=== PATIENT | female | born 1970 | race Asian ===

== ENCOUNTER → 2024-09-20 | Day surgery (SDC) | payer OTHER ==
[2024-09-18 14:09] VITALS: BMI 29.7
[2024-09-20 13:14] VITALS: RESP 18
[2024-09-20] MEDS: LIDOCAINE HCL 1% PRESERVATIVE FREE - 30ML VIAL IJ ONE ×2 (14:11)
[2024-09-20] MEDS: BUPIVACAINE HCL/PF 0.5% (5MG/ML) 10 ML VIAL IJ ONE ×2 (14:11)
[2024-09-20 14:32] VITALS: BP 136/71; PULSE 66; TEMP 97.5
== END | disposition home or self-care (01) ==
LOC: JASU-SURG 07:17
PROVIDERS: ATTEND Pain Medicine Pain Medicine
PROC: 3E0U3BZ Introduction of Anesthetic Agent into Joints, Percutaneous Approach (ICD-10-PCS; 2024-09-20)
PROC: 3E0U33Z Introduction of Anti-inflammatory into Joints, Percutaneous Approach (ICD-10-PCS; principal; 2024-09-20 14:45)
DX: M53.3 Sacrococcygeal disorders, not elsewhere classified (principal)
CPT/HCPCS: 76000-TC-FY